=== PATIENT | male | born 1995 | race Caucasian/White ===

== ENCOUNTER 2018-06-01 11:08 | Emergency (ER) | payer BC ==
[2018-06-01 11:22] VITALS: BP 125/57
--- NOTE | 2018-06-01 11:30 | ER Document Report ---
ED Skin Rash/Insect Bite/Abscs - General Chief Complaint: Rash Stated Complaint: POSSIBLE ALLERGIC REACTION Time Seen by Provider: 06/01/18 11:22 Notes: Patient is a healthy 22-year-old male complaining of a pruritic rash to his arms groin and trunk 3 days. Patient reports that he was weed eating in his yard several days ago prior to the rash erupting. Patient denies any respiratory difficulty TRAVEL OUTSIDE OF THE [place] IN LAST 30 DAYS: No - HPI Patient complains to provider of: Skin rash/lesion Onset: Other - 3 days Onset/Duration: Gradual Skin Character: Vesicular Skin Temperature: Warm Quality of rash: Itchy Identify cause: Yes - poison oak Exacerbated by: Denies Relieved by: Denies Similar symptoms previously: Yes Recently seen / treated by doctor: No - Related Data Allergies/Adverse Reactions: calamine [Calamine] Allergy (Verified 06/01/18 11:34) Blisters hydrocortisone [From Cortizone-10] Allergy (Verified 06/01/18 11:34) Blisters triamcinolone [Triamcinolone] Allergy (Verified 06/01/18 11:34) Blisters Past Medical History - General Information source: Patient - Social History Smoking Status: Current Every Day Smoker Frequency of alcohol use: None Drug Abuse: None Lives with: Family Family History: Reviewed & Not Pertinent - Immunizations Immunizations up to date: Yes Hx Diphtheria, Pertussis, Tetanus Vaccination: Yes Review of Systems - Review of Systems Constitutional: No symptoms reported EENT: No symptoms reported Cardiovascular: No symptoms reported Respiratory: No symptoms reported Gastrointestinal: No symptoms reported Genitourinary: No symptoms reported Male Genitourinary: No symptoms reported Musculoskeletal: No symptoms reported Skin: See HPI Hematologic/Lymphatic: No symptoms reported Neurological/Psychological: No symptoms reported Physical Exam - Vital signs Vitals: Temp Pulse Resp BP Pulse Ox 97.9 F 73 16 125/57 L 99 06/01/18 11:21 06/01/18 11:21 06/01/18 11:21 06/01/18 11:21 06/01/18 11:21 Interpretation: Normal - General General appearance: Appears well, Alert - HEENT Head: Normocephalic, Atraumatic Eyes: Normal Pupils: PERRL - Respiratory Respiratory status: No respiratory distress Chest status: Nontender Breath sounds: Normal Chest palpation: Normal - Cardiovascular Rhythm: Regular Heart sounds: Normal auscultation Murmur: No - Abdominal Inspection: Normal Distension: No distension Bowel sounds: Normal Tenderness: Nontender Organomegaly: No organomegaly - Back Back: Normal, Nontender - Extremities General upper extremity: Normal inspection, Nontender, Normal color, Normal ROM , Normal temperature General lower extremity: Normal inspection, Nontender, Normal color, Normal ROM , Normal temperature, Normal weight bearing. No: Chiquis's sign - Neurological Neuro grossly intact: Yes Cognition: Normal Orientation: AAOx4 Seltzer Coma Scale Eye Opening: Spontaneous Seltzer Coma Scale Verbal: Oriented Seltzer Coma Scale Motor: Obeys Commands Marcelino Coma Scale Total: 15 Speech: Normal Motor strength normal: LUE, RUE, LLE, RLE Sensory: Normal - Psychological Associated symptoms: Normal affect, Normal mood - Skin Skin Temperature: Warm Skin Moisture: Dry Skin Color: Normal Skin irregularity: Rash Location of irregularity: Chest - right lateral trunk, Other - groin, hands and forearms Character of irregularity: Patchy Course - Re-evaluation Re-evalutation: 06/01/18 11:28 History and physical are consistent with a Rhus dermatitis. No signs of anaphylactic reaction. No angioedema or difficulty breathing. Will treat with course of oral steroids and oral antihistamines. Patient reports he is allergic to topical hydrocortisone. Reports it villagran his skin and gives him what looks like third-degree villagran home care, primary care follow-up, ED return precautions discussed with patient. Patient is agreeable with plan is stable for discharge 06/01/18 11:35 - Vital Signs Vital signs: Temp Pulse Resp BP Pulse Ox 97.9 F 73 16 125/57 L 99 06/01/18 11:21 06/01/18 11:21 06/01/18 11:21 06/01/18 11:21 06/01/18 11:21 Discharge - Discharge Clinical Impression: Contact dermatitis Qualifiers: Contact dermatitis type: unspecified Contact dermatitis trigger: unspecified trigger Qualified Code(s): L25.9 - Unspecified contact dermatitis, unspecified cause Condition: Stable Disposition: HOME, SELF-CARE Instructions: Contact Dermatitis ([facility]), Steroid Medication, Topical Steroid Cream or Ointment ([facility]), Use of Diphenhydramine Additional Instructions: Reconstitute Dom Boro's solution with 8 ounces of cool tap water. Make a compress and apply to the rash for 10 minutes Pat the area dry, then apply a thin layer of your topical steroid cream to the rash Take oral steroids as prescribed Take Benadryl 50 mg every 6 hours for the itch Follow-up with your primary care if rash persists Prescriptions: Calcium Acetate/Al Sulfate [[place] Packet] 1 each TP TID PRN #30 packet PRN Reason: Prednisone [Deltasone 20 mg Tablet] 3 tab PO DAILY 5 Days tablet Forms: Return to Work
== END 2018-06-01 11:47 | disposition home or self-care (01) ==
LOC: ER 11:08
DX: L25.9 Unspecified contact dermatitis, unspecified cause (principal); F17.200 Nicotine dependence, unspecified, uncomplicated
CPT/HCPCS: 99282